=== PATIENT | male | born 1950 | race Caucasian/White ===

== ENCOUNTER 2019-07-30 08:30 | Emergency (ER) | payer MEDICARE ==
[~2019-07-30] VITALS: Ht 167.6 cm; Wt 127.7 kg
[~2019-07-30 08:30] MED LIST: ASPIRIN E.C. 8181 MG PO; BETAPACE AF120 MG PO; CALCIUM 600 + V1 TA1 PO; CALTRATE 600 +1 TAB PO; CARDIZEM 60MG T60 MG PO; CARDIZEM CD 12120 MG PO; CENTRUM PERFORM1 TAB PO; CIPRO 250MG TA250 MG PO; CIPRO 500MG TA500 MG PO; COUMADIN 3MG3 MG/TAB PO; COUMADIN 5MG5 MG/TAB PO; COUMADIN4 MG PO; COUMADIN5 MG PO; COZAAR 50MG50 MG/TAB PO; CYANOCOBAL1000 MCG/M SQ; DILTIAZEM60 MG PO; ENTOCORT EC; FLAGYL500 MG PO; IMODIUM 2MG CAPS2 MG PO; K-LOR CON; KLOR-CON 1010 MEQ; KLOR-CON M2020 MEQ PO; LASIX 20MG TABL20 MG PO; LASIX20 MG PO; MERCAPTOPURINE50 MG PO; METRONIDAZOLE250 MG PO; MULTI VITAMINS1 TAB PO; PENTASA500 MG; PREDNISONE 5MG5 MG PO; SOTALOL80 MG PO; TAMBOCOR100 MG PO; TOPROL XL 50MG50 MG PO; TOPROL XL50 MG PO; TYLENOL #3 301 UDTAB PO; VITAMIN B-12100 MCG PO; VITAMIN B12 IM; VITAMIN C BUFF500 MG PO; VITAMIN C500 MG PO
[2019-07-30 08:38] VITALS: TEMP 97.2
[2019-07-30 09:11] LABS: HEMOGLOBIN 15.7 g/dl (13.5-18.0); MEAN CELL VOLUME 93 fl (80.0-100.0); MEAN CORPUSCULAR HEMOGLOBIN 31 pg (27.0-31.0); MEAN CORPUSCULAR HGB CONC 33 g/dl (33.0-37.0); MEAN PLATELET VOLUME 8.8 fl (7.4-10.4); PLATELET COUNT 199 K/mm3 (130-400); RED BLOOD COUNT 5.06 M/mm3 (4.20-5.60); REDCELL DISTRIBUTION WIDTH-CV 14.6 % (11.5-14.5)
[2019-07-30 09:27] LABS: BAND 6 % (0-10); LYMPHOCYTE 4 % (20.0-51.0); NEUTROPHILS 85 % (42.0-75.2)
[2019-07-30 09:28] LABS: PLATELET ESTIMATE NORMAL (NORMAL)
[2019-07-30 09:29] LABS: ALANINE AMINOTRANSFERASE 25 U/L (21-72); ALBUMIN 4.4 gm/dL (3.5-5.0); ALKALINE PHOSPHATASE 91 U/L (50-136); ANION GAP 12 mmol/L (7-16); AST,SGOT 35 U/L (15-37); BILIRUBIN,TOTAL 1.4 mg/dL (0.0-1.0); BLOOD UREA NITROGEN 26 mg/dL (9-20); CALCIUM 9.9 mg/dL (8.4-10.2); CARBON DIOXIDE 36 mmol/L (22-30); CHLORIDE 93 mmol/L (98-107); CREATININE, serum 0.85 (0.66-1.25); GLUCOSE 197 mg/dL (74-106); POTASSIUM 3.7 mmol/L (3.4-5.0); SODIUM 141 mmol/L (137-145); TOTAL PROTEIN 7.8 gm/dL (6.4-8.2)
[2019-07-30 09:34] LABS: TROPONIN-I < 0.012 ng/mL (0.000-0.035)
[2019-07-30 09:47] LABS: INR 3.9 (0.8-3.0)
[2019-07-30 09:50] LABS: PARTIAL THROMBOPLASTIN TIME 44.1 SECONDS (26.0-37.0)
[2019-07-30 09:55] LABS: PROTHROMBIN TIME 47.1 SECONDS (9.7-12.8)
[2019-07-30 09:58] LABS: ARTERIAL BLD GAS O2 SATURATION 92.4 % (92-100); ARTERIAL BLD GAS TCO2 CT 29.4; ARTERIAL BLOOD GAS BASE EXCESS 5.3 (-2-2); ARTERIAL BLOOD GAS HCO3 28.3 meq/L (22-26); ARTERIAL BLOOD GAS PCO2 36.3 mmHg (35-45); ARTERIAL BLOOD GAS PO2 61.2 mmHg (80-100); ARTERIAL BLOOD GAS pH 7.51 (7.35-7.45)
[2019-07-30 13:11] VITALS: BP 112/68; PULSE 116
== END 2019-07-30 13:00 | disposition short-term general hospital (02) ==
LOC: COL.ER 08:30
PROVIDERS: Emergency Medicine; Physician Assistant
DX: A41.9 Sepsis, unspecified organism (principal); R65.20 Severe sepsis without septic shock; J96.01 Acute respiratory failure with hypoxia; I48.20 Chronic atrial fibrillation, unspecified; J18.9 Pneumonia, unspecified organism; E78.5 Hyperlipidemia, unspecified; I11.0 Hypertensive heart disease with heart failure; I50.9 Heart failure, unspecified; I48.91 Unspecified atrial fibrillation; E66.01 Morbid (severe) obesity due to excess calories; Z87.891 Personal history of nicotine dependence; Z85.038 Personal history of other malignant neoplasm of large intestine; Z79.82 Long term (current) use of aspirin; Z79.01 Long term (current) use of anticoagulants
CPT/HCPCS: J2543; J3370; J7030; J7040

== ENCOUNTER → 2020-11-11 | Outpatient (CLI) | payer MEDICARE ==
[2020-11-11 07:55] LABS: ARTERIAL BLD GAS O2 SATURATION 94.4 % (92-100); ARTERIAL BLD GAS TCO2 CT 27.6; ARTERIAL BLOOD GAS BASE EXCESS 3.3 (-2-2); ARTERIAL BLOOD GAS HCO3 26.5 meq/L (22-26); ARTERIAL BLOOD GAS PCO2 35.9 mmHg (35-45); ARTERIAL BLOOD GAS PO2 72.4 mmHg (80-100); ARTERIAL BLOOD GAS pH 7.49 (7.35-7.45)
== END ==
LOC: COL.PUL 07:21
PROVIDERS: Internal Medicine Pulmonary Disease
DX: R06.02 Shortness of breath (principal)

== ENCOUNTER → 2020-11-12 | Outpatient (CLI) | payer MEDICARE | LOC: COL.RAD 10:56 | DX: Z01.812 Encounter for preprocedural laboratory examination (principal); M45.9 Ankylosing spondylitis of unspecified sites in spine; R06.02 Shortness of breath | CPT/HCPCS: Q9967 ==

== ENCOUNTER 2021-09-27 11:53 | Inpatient (IN) | payer MEDICARE ==
[~2021-09-27] VITALS: Ht 167.8 cm; Wt 122.0 kg
[~2021-09-27 11:53] MED LIST changes: +GLUCOPHAGE XR500 M1 PO; +OMNICEF 300MG300 MG PO; -PENTASA500 MG; +PENTASA500 MG PO; +PRAVACHOL 20MG20 MG PO; +PREDNISONE20 MG PO; +PROAIR HFA0.09 MG/AC IH; -TOPROL XL 50MG50 MG PO; +TOPROL XL100 MG PO; +ZAROXOLYN5 MG PO; +ZYLOPRIM 300MG300 MG PO
[2021-09-27 12:43] LABS: BASO # 0.1 K/mm3 (0.0-0.2); BASO % 0.6 % (0.0-2.0); EOS # 0.2 K/mm3 (0.0-0.7); EOS % 1.4 % (0.0-4.0); GRAN # 8.6 K/mm3 (1.4-6.5); HEMATOCRIT 42.2 % (42.0-52.0); HEMOGLOBIN 13.5 g/dl (13.5-18.0); LYMPH # 0.9 K/mm3 (1.2-3.4); LYMPH % 8.2 % (20.0-51.0); MEAN CELL VOLUME 96 fl (80.0-100.0); MEAN CORPUSCULAR HEMOGLOBIN 31 pg (27-31); MEAN CORPUSCULAR HGB CONC 32 g/dl (33.0-37.0); MEAN PLATELET VOLUME 8.9 fl (7.4-10.4); MONO # 0.7 K/mm3 (0.1-0.6); MONO % 7.1 % (1.7-9.3); PLATELET COUNT 217 K/mm3 (130-400); RED BLOOD COUNT 4.41 M/mm3 (4.20-5.60); REDCELL DISTRIBUTION WIDTH-CV 15.1 % (11.5-14.5)
[2021-09-27 12:49] LABS: ALANINE AMINOTRANSFERASE 11 U/L (0-55); ALBUMIN 3.7 gm/dL (3.4-4.8); ALKALINE PHOSPHATASE 78 U/L (40-150); ANION GAP 10 mmol/L (7-16); AST,SGOT 13 U/L (5-34); BLOOD UREA NITROGEN 14 mg/dL (8-26); CALCIUM 9.5 mg/dL (8.4-10.2); CARBON DIOXIDE 30 mmol/L (23-31); CHLORIDE 104 mmol/L (98-107); CREATININE, serum 0.87 mg/dL (0.72-1.25); GLUCOSE 118 mg/dL (70-99); POTASSIUM 4.3 mmol/L (3.5-4.5); SODIUM 144 mmol/L (136-145); TOTAL PROTEIN 6.7 gm/dL (6.2-8.1)
[2021-09-27 12:56] LABS: TROPONIN-I < 0.010 ng/mL (0.00-0.033)
[2021-09-27 13:09] LABS: COLLECTION METHOD CLEAN CATCH
[2021-09-27 13:20] LABS: MUCOUS Present (NOT PRESENT); PH 5 (5-8); SQUAMOUS EPITHELIAL 0-2 /hpf (0-10); URINE APPEARANCE Clear (CLEAR/HAZY); URINE BACTERIA None Seen /hpf (NONE SEEN); URINE BILIRUBIN Negative (NEGATIVE); URINE BLOOD Negative (NEGATIVE); URINE COLOR Yellow (YELLOW); URINE GLUCOSE Negative (NEGATIVE); URINE KETONE Negative (NEGATIVE); URINE LEUKOCYTE ESTERASE Negative (NEGATIVE); URINE NITRATE Negative (NEGATIVE); URINE PROTEIN(semi-quant) Negative (NEGATIVE); URINE RBC None Seen /hpf (0-2); URINE UROBILINOGEN Negative (NEGATIVE)
[2021-09-27 13:47] LABS: ARTERIAL BLD GAS O2 SATURATION 91.6 % (92-100); ARTERIAL BLD GAS TCO2 CT 27.4; ARTERIAL BLOOD GAS BASE EXCESS 2.8 (-2-2); ARTERIAL BLOOD GAS HCO3 26.3 meq/L (22-26); ARTERIAL BLOOD GAS PCO2 36.8 mmHg (35-45); ARTERIAL BLOOD GAS PO2 61.2 mmHg (80-100); ARTERIAL BLOOD GAS pH 7.47 (7.35-7.45)
[2021-09-27 14:59] LABS: INR 4.2 (0.8-3.0)
[2021-09-27] MEDS ORDERED: COUMADIN4 MG PO (15:31)
[2021-09-27] MEDS ORDERED: COZAAR 50MG50 MG/TAB PO (15:33)
[2021-09-27 16:31] VITALS: BP 137/74; PULSE 91; TEMP 97.9
[2021-09-27 16:48] VITALS: BP 134/72; PULSE 79; TEMP 97.5
--- NOTE | 2021-09-27 18:41 | NUR ---
Pt up to room 317, pt is SOB when communicating with staff. O2 needs increased to 9L O2 via Hiflo cannula. Dr. Deutsch notified. External catheter placed d/t lasix administration. No pain reported. POC discussed with patient, agreeable to thoracentesis in the AM. No needs at this time. Call light within reach.
[2021-09-27 19:20] LABS: ARTERIAL BLD GAS O2 SATURATION 88.6 % (92-100); ARTERIAL BLD GAS TCO2 CT 31.1; ARTERIAL BLOOD GAS BASE EXCESS 5.2 (-2-2); ARTERIAL BLOOD GAS HCO3 29.8 meq/L (22-26); ARTERIAL BLOOD GAS PCO2 43.2 mmHg (35-45); ARTERIAL BLOOD GAS PO2 54.4 mmHg (80-100); ARTERIAL BLOOD GAS pH 7.46 (7.35-7.45)
[2021-09-27 19:49] VITALS: BP 121/66; PULSE 95; TEMP 98.6
--- NOTE | 2021-09-27 22:00 | NUR ---
Patient is resting in bed, CPAP in place. Alert and oriented x 4, VSS. Telemetry in place, AFIB. 14 L O2. Assessment completed, medications provided. No other needs at this time. Call light within reach.
[2021-09-27 23:19] VITALS: BP 110/66; PULSE 93; TEMP 98
[2021-09-28 04:30] VITALS: BP 114/72; PULSE 90; TEMP 98.2
[2021-09-28 06:00] LABS: BASO # 0.1 K/mm3 (0.0-0.2); BASO % 0.4 % (0.0-2.0); EOS # 0.2 K/mm3 (0.0-0.7); EOS % 1.7 % (0.0-4.0); GRAN # 9.5 K/mm3 (1.4-6.5); GRAN % 80.4 % (42.2-75.2); HEMATOCRIT 41.7 % (42.0-52.0); HEMOGLOBIN 13.2 g/dl (13.5-18.0); MEAN CELL VOLUME 96 fl (80.0-100.0); MEAN CORPUSCULAR HEMOGLOBIN 30 pg (27-31); MEAN CORPUSCULAR HGB CONC 32 g/dl (33.0-37.0); MEAN PLATELET VOLUME 8.9 fl (7.4-10.4); MONO # 1.1 K/mm3 (0.1-0.6); MONO % 8.9 % (1.7-9.3); PLATELET COUNT 202 K/mm3 (130-400); RED BLOOD COUNT 4.35 M/mm3 (4.20-5.60); REDCELL DISTRIBUTION WIDTH-CV 14.9 % (11.5-14.5)
--- NOTE | 2021-09-28 06:02 | NUR ---
Patient has had a calm night. He has been using the CPAP. Right now at 14L O2. Telemetry in place, AFIB. Report will be given to day RN.
[2021-09-28 06:12] LABS: INR 1.6 (0.8-3.0); PROTHROMBIN TIME 18.6 SECONDS (9.7-12.8)
[2021-09-28 06:18] LABS: CALCIUM 8.9 mg/dL (8.4-10.2); CREATININE, serum 0.83 mg/dL (0.72-1.25); POTASSIUM 3.7 mmol/L (3.5-4.5)
[2021-09-28 07:13] VITALS: BP 126/76; PULSE 80; TEMP 98.4
--- NOTE | 2021-09-28 08:41 | NUR ---
PT TO RADIOLOGY FOR [facility] AT THIS TIME.
--- NOTE | 2021-09-28 09:28 | NUR ---
PT RETURNED FROM THORACENTISIS, PT REFUSED PER TECHS. PT REPORTS THAT DR TOLD HIM THAT HE DID NOT HAVE ENOUGH FLUID TO ASPIRATE.
--- NOTE | 2021-09-28 10:11 | NUR ---
PT REFUSED THORACENTESIS THIS MORNING. PATIENT ALERT AND ORIENTED X3. TOOK MORNING MEDICATIONS WELL. PATIENT NOW USING URINAL INSTEAD OF CONDOM CATHETER.
--- NOTE | 2021-09-28 11:32 | NUR ---
airplane woodworker met with patient to discuss discharge plan. Patient states that he lives at home with his Amy ([phone]) who is present at bedside. Patient states that at home he is independent with some of his ADL's but that his helps with things that he is unable to complete on his own. Patient utilizes a rollator walker to assist with ambulation. He does have home oxygen needs and is on 3-4 L at home that is managed through [facility]. He states that he has a home unit, a portable concentrator and spare tank at home. He also has a CPAP machine that is managed through [facility] as well. Patient and patients are both in agreement that they "think" the patient has a DPOA-HC estbalished. Patient expresses some hesitation with getting a thoracentesis later, stating " ijust want to make sure that its actually worth the risks". Patient sees for pulmonary and i has been educated that he does have an order in for a pulmonary consult. Discharge plan: Home
[2021-09-28 11:46] VITALS: BP 113/65; PULSE 93; TEMP 98.7
--- NOTE | 2021-09-28 13:06 | NUR ---
First visit from the show horse driver. No needs right now.
[2021-09-28 16:18] VITALS: BP 105/85; PULSE 102; TEMP 99
[2021-09-28 20:19] VITALS: BP 111/61; PULSE 88; TEMP 97.8
[2021-09-28 23:56] VITALS: BP 121/62; PULSE 97; TEMP 97.7
[2021-09-29 04:48] VITALS: BP 121/69; PULSE 91; TEMP 98.2
--- NOTE | 2021-09-29 05:34 | NUR ---
RESTED THROUGH THE NIGHT WITHOUT INCIDENT. NEEDS MET.
[2021-09-29 06:04] LABS: BASO # 0.1 K/mm3 (0.0-0.2); BASO % 0.5 % (0.0-2.0); EOS # 0.2 K/mm3 (0.0-0.7); GRAN # 8.4 K/mm3 (1.4-6.5); GRAN % 77.5 % (42.2-75.2); HEMOGLOBIN 13.1 g/dl (13.5-18.0); LYMPH % 9.2 % (20.0-51.0); MEAN CELL VOLUME 97 fl (80.0-100.0); MEAN CORPUSCULAR HEMOGLOBIN 31 pg (27-31); MEAN CORPUSCULAR HGB CONC 32 g/dl (33.0-37.0); MEAN PLATELET VOLUME 8.6 fl (7.4-10.4); MONO # 1.1 K/mm3 (0.1-0.6); MONO % 10.2 % (1.7-9.3); PLATELET COUNT 175 K/mm3 (130-400); RED BLOOD COUNT 4.25 M/mm3 (4.20-5.60); REDCELL DISTRIBUTION WIDTH-CV 14.9 % (11.5-14.5)
[2021-09-29 06:34] LABS: CALCIUM 8.7 mg/dL (8.4-10.2); CREATININE, serum 0.88 mg/dL (0.72-1.25); POTASSIUM 3.8 mmol/L (3.5-4.5)
--- NOTE | 2021-09-29 06:45 | NUR ---
The patient is sitting up in recliner at this time. Does have some yellow sputum. Reduced oxygen to 10L HFNC. No other concerns.
[2021-09-29 07:48] VITALS: BP 116/66; PULSE 96; TEMP 98.9
--- NOTE | 2021-09-29 10:07 | NUR ---
Initial visit; Patient and his thanked Acquisition Manager for visit. Patient voiced objection to Cru[facility]. Acquisition Manager offered God's blessings.
--- NOTE | 2021-09-29 11:43 | NUR ---
Patient sitting in patient room recliner. is visiting, no needs at this time.
[2021-09-29 12:04] VITALS: BP 106/57; PULSE 87; TEMP 98.2
[2021-09-29] MEDS ORDERED: VENTOLIN0.09 MG IH (15:31)
[2021-09-29] MEDS ORDERED: ULTRAM 50MG TAB50 MG PO (15:36)
--- NOTE | 2021-09-29 16:13 | NUR ---
Personnel Recruiter collaborated with Hospitalist about possible [facility]. AUBREE Ramirez advised patient is now weaned down to six liters and may be able to return home at time of discharge.
[2021-09-29 16:17] VITALS: BP 105/51; PULSE 92; TEMP 98.4
[2021-09-29 20:18] VITALS: BP 115/73; PULSE 100; TEMP 98.8
--- NOTE | 2021-09-29 22:55 | NUR ---
Received report from day shift. Patient alert and oriented x4. VSS. Patient denies pain at this time. Assessment performed. PM meds administered. CPAP set up. Call light within reach.
[2021-09-30] VITALS (7 sets, daily range): BP systolic 91–136; BP diastolic 50–77; PULSE 92–104; TEMP 97.6–98.5
[2021-09-30 06:10] LABS: INR 1.3 (0.8-3.0); PROTHROMBIN TIME 15.3 SECONDS (9.7-12.8)
[2021-09-30 06:13] LABS: BASO # 0.1 K/mm3 (0.0-0.2); BASO % 0.5 % (0.0-2.0); EOS # 0.2 K/mm3 (0.0-0.7); EOS % 2.1 % (0.0-4.0); GRAN # 8.2 K/mm3 (1.4-6.5); GRAN % 78.7 % (42.2-75.2); HEMATOCRIT 40.6 % (42.0-52.0); HEMOGLOBIN 12.9 g/dl (13.5-18.0); LYMPH % 9.2 % (20.0-51.0); MEAN CELL VOLUME 96 fl (80.0-100.0); MEAN CORPUSCULAR HEMOGLOBIN 30 pg (27-31); MEAN CORPUSCULAR HGB CONC 32 g/dl (33.0-37.0); MEAN PLATELET VOLUME 8.9 fl (7.4-10.4); MONO # 0.9 K/mm3 (0.1-0.6); MONO % 8.7 % (1.7-9.3); PLATELET COUNT 179 K/mm3 (130-400); RED BLOOD COUNT 4.25 M/mm3 (4.20-5.60); REDCELL DISTRIBUTION WIDTH-CV 14.6 % (11.5-14.5)
[2021-09-30 06:22] LABS: CALCIUM 8.8 mg/dL (8.4-10.2); CREATININE, serum 0.92 mg/dL (0.72-1.25); POTASSIUM 4.1 mmol/L (3.5-4.5)
--- NOTE | 2021-09-30 10:45 | NUR ---
Administrative Law Judge met with patient and his to review discharge plan. SW discussed Home Health services with patient and he and his feel this would be beneficial. SW provided Medicare.gov list of HH agencies that serve [place]. Patient to review and follow up with ARLETH on choice. Discharge Plan: Home with HH
--- NOTE | 2021-09-30 12:36 | NUR ---
Legal Recruiter was notified by ARNEL Chávez that patient would like to use [facility]. SW contacted Ivania at [facility] and faxed referral.
--- NOTE | 2021-09-30 16:38 | NUR ---
[facility] is able to accept this patient.
[2021-10-01 04:00] VITALS: BP 124/73; PULSE 110; TEMP 97.5
[2021-10-01 06:01] LABS: BASO # 0.1 K/mm3 (0.0-0.2); BASO % 0.5 % (0.0-2.0); EOS # 0.2 K/mm3 (0.0-0.7); EOS % 2.3 % (0.0-4.0); GRAN # 8.1 K/mm3 (1.4-6.5); GRAN % 77.3 % (42.2-75.2); HEMATOCRIT 38.8 % (42.0-52.0); HEMOGLOBIN 12.3 g/dl (13.5-18.0); LYMPH % 9.3 % (20.0-51.0); MEAN CELL VOLUME 95 fl (80.0-100.0); MEAN CORPUSCULAR HEMOGLOBIN 30 pg (27-31); MEAN CORPUSCULAR HGB CONC 32 g/dl (33.0-37.0); MEAN PLATELET VOLUME 9.2 fl (7.4-10.4); MONO % 9.8 % (1.7-9.3); PLATELET COUNT 178 K/mm3 (130-400); RED BLOOD COUNT 4.07 M/mm3 (4.20-5.60); REDCELL DISTRIBUTION WIDTH-CV 14.6 % (11.5-14.5)
[2021-10-01 06:14] LABS: INR 1.5 (0.8-3.0); PROTHROMBIN TIME 16.9 SECONDS (9.7-12.8)
--- NOTE | 2021-10-01 06:25 | NUR ---
ASSESSMENT COMPLETE FOR THIS SHIFT. PT RESTING IN BED WITH HIS C-PAP ON. PT DENIED PAIN, PALPITATIONS, N,V,D OR DIZZINESS. PT HAD AN UNEVENTFUL NIGHT. PT EXPRESSED NO OTHER NEEDS AT THIS TIME. CALL LIGHT WITHIN REACH.
[2021-10-01 06:27] LABS: CALCIUM 8.6 mg/dL (8.4-10.2); CREATININE, serum 0.89 mg/dL (0.72-1.25); POTASSIUM 3.8 mmol/L (3.5-4.5)
[2021-10-01 07:56] VITALS: BP 111/55; PULSE 109; TEMP 98.4
[2021-10-01] MEDS ORDERED: TOPROL XL 50MG50 MG PO (09:12)
[2021-10-01] MEDS ORDERED: RT Anoro Ellipta IH (09:29)
--- NOTE | 2021-10-01 10:42 | NUR ---
PATIENT UP IN CHAIR, BREAKFAST IN ROOM. PATIENT REFUSED MORNING LOVENOX. MORNING BLOOD PRESSURE MEDICATIONS HELD PER DR. UMANA, PATIENT BP 111/55. PATIENT DISCHARGING HOME. B/L FEET WITH +3/+4 EDEMA. STRONG PEDAL PULSES STILL PRESENT. WOUNDS ON BOTH KNEES, SCABBED AND HEALING FROM A FALL AT HOME, PER PATIENT. PATIENT ON BASELINE 02 @4L. NO COMPLAINTS OF PAIN. PATIENT READY TO GO HOME.
[2021-10-01 11:32] VITALS: BP 121/60; PULSE 107; TEMP 98.3
--- NOTE | 2021-10-01 12:26 | NUR ---
PATIENT DRESSING WITH ASSISTANCE OF SPOUSE. EDUCATION AND INSTRUCTIONS GIVEN. ALL APPOINTMENTS MADE. NO FURTHER QUESTIONS FROM PATIENT OR FAMILY MEMEBER. PATIENT ATE LUNCH, CLARIFIED NO NEED FOR MIDDAY INSULIN AND IS VOCALIZING READINESS TO GO HOME.
--- NOTE | 2021-10-01 13:14 | NUR ---
Helicopter Utility Aircrewman attended clinical rounds and patient to discharge today. SW met with patient to present and review IM form. Patient verbalized understanding and provided signature. SW placed form in chart and provided copy to patient. SW contacted Ivania at [facility] and faxed discharge orders. Discharge Plan: Home with [facility]
== END 2021-10-01 12:40 | disposition home health service (06) | DRG 189 ==
LOC: COL.ER 11:53 → MEDICAL 13:13
PROVIDERS: Family Medicine; Physician Assistant; Student in an Organized Health Care Education/Training Program; ADMIT Family Medicine
PROC: 5A0935A Assistance with Respiratory Ventilation, Less than 24 Consecutive Hours, High Flow/Velocity Cannula (ICD-10-PCS; 2021-09-27)
PROC: 0W9B3ZZ Drainage of Left Pleural Cavity, Percutaneous Approach (ICD-10-PCS; principal; 2021-09-28)
DX: J96.21 Acute and chronic respiratory failure with hypoxia (principal); I50.22 Chronic systolic (congestive) heart failure; I48.20 Chronic atrial fibrillation, unspecified; K50.90 Crohn's disease, unspecified, without complications; J90 Pleural effusion, not elsewhere classified; J98.11 Atelectasis; G47.33 Obstructive sleep apnea (adult) (pediatric); M10.9 Gout, unspecified; E11.42 Type 2 diabetes mellitus with diabetic polyneuropathy; J44.9 Chronic obstructive pulmonary disease, unspecified; I08.0 Rheumatic disorders of both mitral and aortic valves; I11.0 Hypertensive heart disease with heart failure; I77.819 Aortic ectasia, unspecified site; E78.5 Hyperlipidemia, unspecified; I25.10 Atherosclerotic heart disease of native coronary artery without angina pectoris; Z20.822 Contact with and (suspected) exposure to COVID-19; Z79.01 Long term (current) use of anticoagulants; Z85.038 Personal history of other malignant neoplasm of large intestine; Z87.891 Personal history of nicotine dependence; Z79.84 Long term (current) use of oral hypoglycemic drugs; Z79.82 Long term (current) use of aspirin
CPT/HCPCS: 99222-AI; 99232-AI; 99233-AI; 99239; J1650; J1940; J3430; J7030

== ENCOUNTER → 2022-02-17 | Outpatient (CLI) | payer MEDICARE ==
[~2022-02-17] MED LIST changes: +RT Anoro Ellipta IH; +TOPROL XL 50MG50 MG PO; +ULTRAM 50MG TAB50 MG PO; +VENTOLIN0.09 MG IH
== END ==
LOC: COL.VAS 08:20
DX: R60.9 Edema, unspecified (principal)

== ENCOUNTER 2022-07-14 15:17 | Inpatient (IN) | payer MEDICARE ==
[2022-07-14] VITALS (168 sets, daily range): BP systolic 138; BP diastolic 90; PULSE 108; TEMP 98; O2SAT 72–94
[~2022-07-14] VITALS: Ht 170.2 cm; Wt 122.9 kg
[2022-07-14 15:47] LABS: BASO # 0.1 K/mm3 (0.0-0.2); BASO % 0.6 % (0.0-2.0); EOS # 0.2 K/mm3 (0.0-0.7); EOS % 1.4 % (0.0-4.0); HEMATOCRIT 49.7 % (42.0-52.0); HEMOGLOBIN 15.4 g/dl (13.5-18.0); LYMPH # 0.8 K/mm3 (1.2-3.4); LYMPH % 5.8 % (20.0-51.0); MEAN CELL VOLUME 100 fl (80.0-100.0); MEAN CORPUSCULAR HEMOGLOBIN 31 pg (27-31); MEAN CORPUSCULAR HGB CONC 31 g/dl (33.0-37.0); MEAN PLATELET VOLUME 9.5 fl (7.4-10.4); MONO # 1.3 K/mm3 (0.1-0.6); MONO % 8.7 % (1.7-9.3); PLATELET COUNT 241 K/mm3 (130-400); RED BLOOD COUNT 4.99 M/mm3 (4.20-5.60); REDCELL DISTRIBUTION WIDTH-CV 15.2 % (11.5-14.5)
[2022-07-14 16:10] LABS: ALBUMIN 3.6 gm/dL (3.4-4.8); BILIRUBIN,TOTAL 0.9 mg/dL (0.2-1.2); CALCIUM 9.3 mg/dL (8.4-10.2); CREATININE, serum 0.89 mg/dL (0.72-1.25); POTASSIUM 4.3 mmol/L (3.5-4.5); TOTAL PROTEIN 7.4 gm/dL (6.2-8.1)
[2022-07-14 17:37] LABS: ARTERIAL BLD GAS O2 SATURATION 94.5 % (92-100); ARTERIAL BLD GAS TCO2 CT 31.3; ARTERIAL BLOOD GAS BASE EXCESS 4.2 (-2-2); ARTERIAL BLOOD GAS HCO3 29.8 meq/L (22-26); ARTERIAL BLOOD GAS PCO2 48.1 mmHg (35-45); ARTERIAL BLOOD GAS PO2 68.2 mmHg (80-100); ARTERIAL BLOOD GAS pH 7.41 (7.35-7.45)
[2022-07-14 18:29] LABS: INR 4.1 (0.8-3.0)
--- NOTE | 2022-07-14 20:38 | NUR ---
PT ARRIVED TO THE UNIT FROM ED. REPORT GIVEN BY ARNEL LUNA. PT IS ALERT AND ORIENTED ON 6L NASAL CANNULA. PT IS DYSPNEIC ON EXERTION. O2 SATS BEFORE TRANSFER FROM ED BED TO ICU BED WAS BETWEEN 90-93%. AFTER TRANSFER PT DESATTED TO LOW 80S. PT PLACED ON AN OXYMASK AND BUMPED TO 10L TO INCREASE SATURATION. PT BILATERAL LOWER EXTREMITIES ARE +3 EDEMA. SKIN IS INTACT BUT DRY. PT ABDOMEN IS FIRM AND DISTENDED BUT STATES THAT IS HIS NORMAL. PTS LAST BOWEL MOVEMENT WAS 07/13/22. PTS LEFT SIDED LUNGS ARE DIMINISHED AND THE LOWER LOBE IS ABSENT DUE TO A LOBECTOMY. PTS IS AT BEDSIDE AND EDUCATED ON VISITING HOURS. ADVISED TO TAKE PTS BELONGINGS HOME. SHE INSISTED ON KEEPING THEM IN THE CLOSET. PT CURRENTLY EATING AND CALL LIGHT WITHIN REACH.
[2022-07-15] VITALS (1418 sets, daily range): BP systolic 116–139; BP diastolic 65–89; PULSE 98–120; TEMP 98–98.5; O2SAT 75–99
[2022-07-15 05:47] LABS: HEMATOCRIT 45.7 % (42.0-52.0); HEMOGLOBIN 14.2 g/dl (13.5-18.0); MEAN CELL VOLUME 99 fl (80.0-100.0); MEAN CORPUSCULAR HEMOGLOBIN 31 pg (27-31); MEAN CORPUSCULAR HGB CONC 31 g/dl (33.0-37.0); MEAN PLATELET VOLUME 9.3 fl (7.4-10.4); PLATELET COUNT 197 K/mm3 (130-400); RED BLOOD COUNT 4.61 M/mm3 (4.20-5.60); REDCELL DISTRIBUTION WIDTH-CV 14.8 % (11.5-14.5)
[2022-07-15 06:01] LABS: INR 3.6 (0.8-3.0); PROTHROMBIN TIME 41.4 SECONDS (9.7-12.8)
[2022-07-15 06:07] LABS: CALCIUM 8.8 mg/dL (8.4-10.2); CREATININE, serum 0.9 mg/dL (0.72-1.25); POTASSIUM 3.8 mmol/L (3.5-4.5)
[2022-07-15 06:28] LABS: BAND 4 % (0-10); LYMPHOCYTE 3 % (20.0-51.0); NEUTROPHILS 93 % (42.0-75.2)
[2022-07-15 06:29] LABS: PLATELET ESTIMATE NORMAL (NORMAL)
--- NOTE | 2022-07-15 07:50 | NUR ---
Resting in bed and watching TV. Alert and oriented and in no distress. Assessment completed. Will continue to monitor.
--- NOTE | 2022-07-15 09:44 | NUR ---
Patient was admitted to the ICU on 07-14-22. This Solvent Process Extractor Operator and ARLETH Mitchell met with patient and his , Rebecca who is his NOK and DPOA. Patient lives at his private residence with Rebecca. Patient reports that he utilizes a four wheel walker and a two wheel walker at home as well as the required equipment for bathing and stair assistance. Patient reports O2 use at home provided by [facility]. Patient verbalized a concern for the increase of O2 that is potentially needed at home and the coordination through [facility]. ARLETH informed patient of the referral process for the increase and that coordination with [facility]. Patient reports that his PCP is Vasquez, preferred pharmacy is [facility] on [facility], and his insurance is P: Medicare S: [employer]. Pysisian reported that this patient is likely to discharge to [facility] when discharged.
[2022-07-15] MEDS ORDERED: COUMADIN 3MG3 MG/TAB PO (14:11)
[2022-07-15] MEDS ORDERED: YUPELRI175 MCG/3 IH (14:12)
[2022-07-15] MEDS ORDERED: METAMUCIL0.52 G1 PO (14:14)
--- NOTE | 2022-07-15 19:23 | NUR ---
Heart rate maintaining 90's in A-fib. Discussed with hospitalist and will hold off on initiating cardizem drip due to HR less than 100.
[2022-07-16] VITALS (811 sets, daily range): BP systolic 110–124; BP diastolic 55–76; PULSE 79–86; TEMP 97.5–98.5; O2SAT 81–99
--- NOTE | 2022-07-16 04:36 | NUR ---
PT ALERT AND ORIENTED. THROUGHOUT SHIFT PT AMBULATED TO COMMODE, CHAIR, AND STOOD UP ON THE SIDE OF THE BED TO USE THE URINAL. PT DESATS TO THE MID 80S UPON ACTIVITY. PT RECOVERS AFTER ACTIVITY BACK INTO THE 90S WITHIN 30SEC-1MIN
--- NOTE | 2022-07-16 05:22 | NUR ---
PT GIVEN IV HYDRALAZINE PER EMAR. BLOOD PRESSURE HAS DECREASED TO 134/93.
[2022-07-16 05:54] LABS: HEMATOCRIT 43.4 % (42.0-52.0); HEMOGLOBIN 13.3 g/dl (13.5-18.0); MEAN CELL VOLUME 101 fl (80.0-100.0); MEAN CORPUSCULAR HEMOGLOBIN 31 pg (27-31); MEAN CORPUSCULAR HGB CONC 31 g/dl (33.0-37.0); MEAN PLATELET VOLUME 9.4 fl (7.4-10.4); PLATELET COUNT 182 K/mm3 (130-400); RED BLOOD COUNT 4.31 M/mm3 (4.20-5.60); REDCELL DISTRIBUTION WIDTH-CV 14.6 % (11.5-14.5)
[2022-07-16 05:59] LABS: INR 3.4 (0.8-3.0); PROTHROMBIN TIME 39.1 SECONDS (9.7-12.8)
[2022-07-16 06:12] LABS: CALCIUM 8.6 mg/dL (8.4-10.2); CREATININE, serum 0.83 mg/dL (0.72-1.25); POTASSIUM 3.5 mmol/L (3.5-4.5)
[2022-07-16 06:24] LABS: BAND 1 % (0-10); HYPOCHROMIA 3+; LYMPHOCYTE 1 % (20.0-51.0); NEUTROPHILS 97 % (42.0-75.2); PLATELET ESTIMATE NORMAL (NORMAL)
--- NOTE | 2022-07-16 07:00 | NUR ---
Report received from ARNEL Villa; patient currently up watching TV in the chair; patient's vital signs are within normal limits. Patient has no meds or fluids running through his peripheral IV. No other lines or tubes are in place at this time.
--- NOTE | 2022-07-16 08:18 | NUR ---
Clinical referral faxed to Isrrael at [facility]
--- NOTE | 2022-07-16 14:05 | NUR ---
Reported off to ARNEL Ramirez; brought patient and belongings up in wheelchair to room 311; patient was in stable condition and vital signs were all within normal limits.
--- NOTE | 2022-07-16 14:19 | NUR ---
PT TO ROOM 311 WITH REPORT FROM ICU AT THIS TIME. PT IS A/O X4, BILATERAL PLEURAL EFFUSIONS PER DR. RAVI, PT IS NEEDING A THORACENTISIS BUT HAS AND ELEVATED INR OF 3.4 TODAY. WANTS INR <2. FLUID RESTICT TO 1500 MLS/24 HR. PT IS DIABETIC WITH ACCUCHECKS AC/HS. PT HAS BASE LINE NEEDS OF O2 @5L, CURRENTLY NEEDING 6 L PER HI FLOW NASAL CANULA. BIPAP @ NOC. RT AWARE.
--- NOTE | 2022-07-17 00:35 | NUR ---
Pt shift assessment completed around 1999. A&Ox4. All medication given per emar. Pt on O2 at 6L per NC and Bipap at night. RAC INT is CDI. No pain or discomfort reported at this time. Belongings and call light are within reach.
[2022-07-17 03:31] VITALS: BP 120/63; PULSE 81; TEMP 97.4
--- NOTE | 2022-07-17 08:00 | NUR ---
Patient is on the chair, alert and oriented x 4, in the room. Denies any pain at this time. Telemetry in place, AFIB, Getting 5L O2 HFNC. Assessment completed, no further needs at this time. Call light within reach.
[2022-07-17 08:09] VITALS: BP 120/74; PULSE 88; TEMP 98
[2022-07-17 11:16] VITALS: BP 124/67; PULSE 93; TEMP 97.4
--- NOTE | 2022-07-17 12:59 | NUR ---
Help Desk Associate rounds: Patient declined Help Desk Associate visit because he had already "had caodaism with Jarocho Mcconnell." Help Desk Associate commented that Jarocho Mcconnell does provide good bible lessons. Patient agreed. No property disposal manager visit completed.
[2022-07-17 15:39] VITALS: BP 110/57; PULSE 87; TEMP 97.6
[2022-07-17 20:17] VITALS: BP 128/66; PULSE 93; TEMP 98.5
[2022-07-18 00:14] VITALS: BP 140/77; PULSE 88; TEMP 97.6
--- NOTE | 2022-07-18 01:39 | NUR ---
NURSING SHIFT ASSESSMENT COMPLETED. THE PATIENT DENIED PAIN OR DISCOMFORT. NO NEEDS EXPRESSED AT THIS TIME. THE PLAN OF CARE WAS DISCUSSED AND ALL QUESTIONS AND CONCERNS WERE ADDRESSED. EVENING MEDICATIONS DISCUSSED. WILL MONITOR. CALL LIGHT WITHIN REACH. BED IN LOW POSITION.
[2022-07-18 04:29] VITALS: BP 129/76; PULSE 76; TEMP 97.7
[2022-07-18 06:30] LABS: BASO % 0.1 % (0.0-2.0); GRAN % 89.7 % (42.2-75.2); HEMATOCRIT 46.7 % (42.0-52.0); HEMOGLOBIN 14.9 g/dl (13.5-18.0); LYMPH # 0.5 K/mm3 (1.2-3.4); LYMPH % 3.8 % (20.0-51.0); MEAN CELL VOLUME 97 fl (80.0-100.0); MEAN CORPUSCULAR HEMOGLOBIN 31 pg (27-31); MEAN CORPUSCULAR HGB CONC 32 g/dl (33.0-37.0); MEAN PLATELET VOLUME 9.9 fl (7.4-10.4); MONO # 0.8 K/mm3 (0.1-0.6); MONO % 5.7 % (1.7-9.3); PLATELET COUNT 173 K/mm3 (130-400); RED BLOOD COUNT 4.83 M/mm3 (4.20-5.60)
[2022-07-18 06:44] LABS: CALCIUM 8.8 mg/dL (8.4-10.2); CREATININE, serum 0.91 mg/dL (0.72-1.25); POTASSIUM 3.2 mmol/L (3.5-4.5)
[2022-07-18 06:45] LABS: PROTHROMBIN TIME 23.2 SECONDS (9.7-12.8)
[2022-07-18 07:18] VITALS: BP 121/61; PULSE 91; TEMP 97.5
[2022-07-18] MEDS ORDERED: PREDNISONE20 MG PO (10:37)
--- NOTE | 2022-07-18 10:58 | NUR ---
Isrrael from [facility] arrives to the unit to meet with the patient. Per Isrrael, patient is still agreeable to transfer and he has a bed available for this patient to be admitted today. [facility] contacted and does not have a truck availble and won't have one for a few hours. [facility] contacted and is agreeable to transfer the patient. Transport time scheduled for 1100. Patients RN updated. Completed/signed EMS forms left on the patients chart. Clinical updates and discharge orders faxed to Isrrael. Discharge plan: [facility]-
--- NOTE | 2022-07-18 11:49 | NUR ---
PATIENT PICKED UP BY TRANSFER. DISCHARGE GIVEN TO TRANSFER PEOPLE. IV DISCONTINUED. REPORT GIVEN TO [facility] AT 1150.
== END 2022-07-18 11:50 | DRG 291 ==
LOC: COL.ER 15:17 → ICU 17:40 → MEDICAL 07-16 14:03
PROVIDERS: Internal Medicine Pulmonary Disease; Personal Emergency Response Attendant; ADMIT Internal Medicine
PROC: 5A09457 Assistance with Respiratory Ventilation, 24-96 Consecutive Hours, Continuous Positive Airway Pressure (ICD-10-PCS; principal; 2022-07-14)
DX: I11.0 Hypertensive heart disease with heart failure (principal); I50.33 Acute on chronic diastolic (congestive) heart failure; J96.21 Acute and chronic respiratory failure with hypoxia; J96.22 Acute and chronic respiratory failure with hypercapnia; K50.90 Crohn's disease, unspecified, without complications; I45.2 Bifascicular block; I48.20 Chronic atrial fibrillation, unspecified; Z66 Do not resuscitate; I48.92 Unspecified atrial flutter; J91.8 Pleural effusion in other conditions classified elsewhere; Z68.41 Body mass index [BMI] 40.0-44.9, adult; Z88.1 Allergy status to other antibiotic agents; F10.90 Alcohol use, unspecified, uncomplicated; J44.9 Chronic obstructive pulmonary disease, unspecified; I48.91 Unspecified atrial fibrillation; E78.5 Hyperlipidemia, unspecified; E11.42 Type 2 diabetes mellitus with diabetic polyneuropathy; G47.33 Obstructive sleep apnea (adult) (pediatric); M10.9 Gout, unspecified; I71.21 Aneurysm of the ascending aorta, without rupture; E66.01 Morbid (severe) obesity due to excess calories; D72.829 Elevated white blood cell count, unspecified; I08.0 Rheumatic disorders of both mitral and aortic valves; E87.6 Hypokalemia; M19.90 Unspecified osteoarthritis, unspecified site; Z79.82 Long term (current) use of aspirin; Z85.038 Personal history of other malignant neoplasm of large intestine; Z87.01 Personal history of pneumonia (recurrent); Z87.891 Personal history of nicotine dependence; Z99.81 Dependence on supplemental oxygen; Z79.01 Long term (current) use of anticoagulants; Z79.84 Long term (current) use of oral hypoglycemic drugs; Z23 Encounter for immunization
CPT/HCPCS: J0696; J1815; J1940; J2920; J7512; Q9967